=== PATIENT | female | born 2000 | race Caucasian/White ===

== ENCOUNTER → 2019-06-27 13:28 | Outpatient (CLI) | payer OTHER, SELFPAY ==
[2019-06-27 16:29] LABS: Chlamydia Trachomatis by PCR POSITIVE (Negative); Neisserai gonorrhoeae by PCR Negative (Negative); Probe Check PASS; Sample Adequacy Control PASS; Specimen Processing Control PASS
== END ==
PROVIDERS: Referring Provider Obstetrics & Gynecology; Visit Provider Obstetrics & Gynecology
DX: Z11.3 Encounter for screening for infections with a predominantly sexual mode of transmission (principal)
CPT/HCPCS: 87491; 87591

== ENCOUNTER → 2019-07-03 11:13 | Outpatient (CLI) | payer OTHER, SELFPAY ==
[2019-07-03 12:03] LABS: Color, Urine Yellow (Yellow); Glucose, Dipstick Normal (Normal); Ketone-Dipstick 5 mg/dl (Negative); Leukocyte Esterase-Dipstick 100 /ul (Negative); Nitrite-Dipstick Negative (Negative); Occult Blood-Urine Negative /ul (Negative); Protein-Dipstick 30 mg/dl (Negative); Specific Gravity, Urine 1.015 (1.002-1.030); Urine Bilirubin Dipstick Negative (Negative); Urine Clarity Cloudy (Clear); Urine Urobilinogen 1 mg/dl (Normal)
[2019-07-03 12:05] LABS: Absolute Lymphocyte Count 1.84 X10^3/uL (0.83-4.51); Absolute Neutrophil Count 3.8 X10^3/uL (2.0-7.7); Basophil# 0.02 X10^3/uL; Basophil% 0.3 % (0-1); Eosinophil# 0.09 X10^3/uL; Eosinophils% 1.5 % (0-5); Hemoglobin 13.8 g/dL (12.0-15.0); Lymphocyte # 1.84 X10^3/ul (4.0); Mean Corp Hgb Conc 35.4 g/dL (32-36); Mean Corpuscular Hgb 31.4 pg (27.0-32.0); Mean Corpuscular Volume 88.8 fL (81-99); Mean Platelet Vol. 9.5 fl (6.2-12.0); Monocyte% 6.5 % (0-10); NRBC Flagged by Analyzer 0 % (0-5); Neutrophil # 3.77 X10^3/uL (2.7-7.7); Neutrophil % 61.5 % (47-70); Platelet Count 264 K/mm3 (150-450); RBC Distribution Width CV 12.8 % (11.6-14.6); RBC Distribution Width SD 40.7 fl (35.1-43.9); Red Blood Count 4.39 M/mm3 (4.2-5.4); White Blood Count 6.1 K/mm3 (4.4-11.0)
[2019-07-03 12:27] LABS: Thyroid Stim Hormone (TSH) 3.51 uIU/mL (0.358-3.74)
[2019-07-03 12:28] LABS: Amphetamine Urine VISTA NEGATIVE (<1000 ng/mL); Barbiturate Urine VISTA NEGATIVE (< 200 ng/mL); Benzodiazepine Urine VISTA NEGATIVE (< 200 ng/mL); Cocaine Urine VISTA NEGATIVE (< 300 ng/mL); Ecstacy Urine VISTA NEGATIVE (< 500 ng/mL); Methadone Urine VISTA NEGATIVE (< 300 ng/mL); PCP Urine VISTA NEGATIVE (< 25 ng/mL); THC Urine VISTA NEGATIVE (< 50 ng/mL); Vista UDS pH Range 8
[2019-07-03 13:01] LABS: HIV - WCH Non-Reactive (Nonreactive); Hepatitis B Surface Antigen Non-Reactive (Nonreactive); Hepatitis C Antibody Non-Reactive (Nonreactive); Rubella IgG 128.8 IU/mL
[2019-07-05 02:31] LABS: Prenatal RPR NONREACTIVE (NONREACTIVE)
== END ==
PROVIDERS: Visit Provider Obstetrics & Gynecology
DX: Z34.81 Encounter for supervision of other normal pregnancy, first trimester (principal)
CPT/HCPCS: 36415; 80307; 81002; 84443; 85025; 86703; 86762; 86803; 87340

== ENCOUNTER 2019-09-25 15:19 | Outpatient (CLI) | payer OTHER, MEDICAID, SELFPAY ==
[2019-09-25 15:45] VITALS: BMI 23.0
[2019-09-25 16:23] VITALS: TEMP 37.1; O2SAT 98
[2019-09-25 16:24] VITALS: BP 109/62; PULSE 76
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
== END 2019-09-25 17:45 | disposition home or self-care (01) ==
LOC: WPOUT 15:26 → WP 15:26
PROVIDERS: Referring Provider Obstetrics & Gynecology; Visit Provider Obstetrics & Gynecology
DX: O26.892 Other specified pregnancy related conditions, second trimester (principal); V89.2XXA Person injured in unspecified motor-vehicle accident, traffic, initial encounter; Z3A.24 24 weeks gestation of pregnancy
CPT/HCPCS: 59025; 59050; 99218; G0378

== ENCOUNTER → 2019-10-25 15:30 | Outpatient (CLI) | payer OTHER, MEDICAID, SELFPAY ==
[2019-09-25 15:45] VITALS: BMI 23.0
[2019-10-25 15:54] LABS: Hematocrit 33.2 % (37-47); Hemoglobin 11.7 g/dL (12.0-15.0); Mean Corp Hgb Conc 35.2 g/dL (32-36); Mean Corpuscular Hgb 32.8 pg (27.0-32.0); Mean Platelet Vol. 9.5 fl (6.2-12.0); Platelet Count 264 K/mm3 (150-450); RBC Distribution Width CV 12.1 % (11.6-14.6); RBC Distribution Width SD 40.9 fl (35.1-43.9); Red Blood Count 3.57 M/mm3 (4.2-5.4); White Blood Count 7.9 K/mm3 (4.4-11.0)
[2019-10-25 16:16] LABS: Glucose Challenge Gest 1H 50g 82 mg/dL (70-140)
== END ==
PROVIDERS: Visit Provider Obstetrics & Gynecology
DX: Z34.83 Encounter for supervision of other normal pregnancy, third trimester (principal)
CPT/HCPCS: 36415; 82950; 85027; 86850

== ENCOUNTER → 2019-11-20 14:48 | Outpatient (CLI) | payer OTHER, MEDICAID, SELFPAY ==
[2019-11-22 20:07] LABS: Chlamydia By Nucleic Acid AMP Negative (Negative)
[2019-11-22 20:37] LABS: Gonococcus By Nucleic Acid AMP Negative (Negative)
== END ==
PROVIDERS: Visit Provider Obstetrics & Gynecology
DX: Z34.83 Encounter for supervision of other normal pregnancy, third trimester (principal)
CPT/HCPCS: 87491; 87591

== ENCOUNTER → 2019-12-18 16:21 | Outpatient (CLI) | payer OTHER, MEDICAID, SELFPAY ==
[2019-12-21 03:06] LABS: Chlamydia By Nucleic Acid AMP Negative (Negative)
[2019-12-21 06:32] LABS: Gonococcus By Nucleic Acid AMP Negative (Negative)
== END ==
PROVIDERS: Visit Provider Obstetrics & Gynecology
DX: Z34.83 Encounter for supervision of other normal pregnancy, third trimester (principal); Z36.85 Encounter for antenatal screening for Streptococcus B
CPT/HCPCS: 87077; 87081; 87186; 87491; 87591

== ENCOUNTER 2019-12-23 22:25 | Inpatient (IN) | payer OTHER, MEDICAID, SELFPAY ==
[2019-12-23 21:50] VITALS: BMI 27.7
[2019-12-23 22:05] VITALS: BP 142/80; PULSE 66
[2019-12-23 22:29] VITALS: BP 152/83; PULSE 70
[2019-12-23 22:44] LABS: ROM Internal Control Test YES-OK TO RESULT pt. (Internal QC); ROM Patient Test POSITIVE (Negative)
[2019-12-23 22:45] VITALS: BP 159/93; PULSE 74
[2019-12-23] MEDS: Lactated Ringers 500 ML 999 ML IV (23:39)
[2019-12-23 23:53] VITALS: BP 186/93; PULSE 70; TEMP 37.4; O2SAT 99
[2019-12-23] MEDS: Ondansetron 4 MG/2 ML Vial IV (23:56)
[2019-12-24] VITALS (22 sets, daily range): BP systolic 131–170; BP diastolic 73–109; PULSE 58–114; RESP 16; TEMP 36.4–37.5; O2SAT 94–100
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
[2019-12-24] MEDS: Lactated Ringers 1,000 ML 200 ML IV (00:21)
[2019-12-24 00:25] LABS: Hematocrit 37.6 % (37-47); Hemoglobin 13.1 g/dL (12.0-15.0); Mean Corp Hgb Conc 34.8 g/dL (32-36); Mean Corpuscular Hgb 32.1 pg (27.0-32.0); Mean Corpuscular Volume 92.2 fL (81-99); Mean Platelet Vol. 10.6 fl (6.2-12.0); Platelet Count 251 K/mm3 (150-450); RBC Distribution Width CV 12.4 % (11.6-14.6); RBC Distribution Width SD 41.1 fl (35.1-43.9); Red Blood Count 4.08 M/mm3 (4.2-5.4); White Blood Count 9.4 K/mm3 (4.4-11.0)
[2019-12-24 00:40] LABS: AST(SGOT) 17 U/L (15-37); Alanine Aminotransfer ALT/SGPT 22 U/L (13-56); Creatinine, Serum 0.66 mg/dL (0.55-1.02); EST Glomerular Filtration Rate 121 mL/min (>60); Est Glom Filt Rate - Afr Amer 146 mL/min (>60); Estimated Creatinine Clearance 126.22 ml/min; Uric Acid 5.3 mg/dL (2.6-6.0)
[2019-12-24 00:40] LABS: Protein, Urine (Random) 39.2 mg/dL (<11.9); Protein:Creat Ratio 1016 mg/g CRE (0-200)
[2019-12-24] MEDS: Oxytocin 30 units/NS 500 ml 30 UNITS/500 ML IV.SOLN 334 UNITS IV (01:05)
[2019-12-24 01:06] LABS: ALB/GLOB Ratio 0.6 RATIO (0.9-2.4); AST(SGOT) 17 U/L (15-37); Alanine Aminotransfer ALT/SGPT 19 U/L (13-56); Albumin, Serum 2.7 g/dL (3.2-5.0); Alkaline Phosphatase 170 U/L (45-117); Anion Gap 6 (5-15); BUN 6 mg/dL (7-18); BUN/Creat Ratio 9.4 RATIO (10-20); Calcium,Total 8.9 mg/dL (8.5-10.1); Chloride 107 mmol/L (98-107); Creatinine, Serum 0.64 mg/dL (0.55-1.02); EST Glomerular Filtration Rate 125 mL/min (>60); Est Glom Filt Rate - Afr Amer 152 mL/min (>60); Estimated Creatinine Clearance 130.17 ml/min; Globulin 4.4 g/dL (2.2-4.2); Glucose 84 mg/dL (74-106); Protein, Total 7.1 g/dL (6.4-8.2); Sodium Level 138 mmol/L (136-145)
--- NOTE | 2019-12-24 01:28 | OP.PCM_ITS ---
Problem List (1) 37 weeks gestation of Status: Acute (2) (spontaneous vaginal delivery) Status: Acute Vaginal Delivery Maternal Presentation: Active Labor, Spontaneous Rupture of Membranes Amniotic Membrane Rupture Type: Spontaneous at home Rupture of Membrane time: 2100h Amniotic Fluid Description: Clear Final AMARI: 01/14/20 Final AMARI Source: US <20 weeks Gestational age: 37 Weeks and 0 Days Date of Procedure: 12/24/19 Pre-Operative Diagnosis: 37 wga, SROM at 36.6, GBS positive, gestational hypertension Post-Operative Diagnosis: 37 wga, SROM at 36.6, GBS positive, gestational hypertension Surgery/ Procedure Performed: Spontaneous Vaginal Delivery Type of Anesthesia: None Description of Procedure: I was advised patient sat for her epidural, however c/o of pressure and repeat SVE FD/+2. On my arrival FHR Cat I with elevated maternal blood pressures. Patient pushed with excellent effort to deliver infant head in TIO with a compound presentation of the infant posterior hand. Infant mouth and nares were bulb suctioned at the perineum. The compound presentation prevented delivery of the anterior shoulders. The compound and posterior shoulder was delivered with ease then the anterior should delivered revealing a male . The was placed on the maternal abdomen and further attended by nursery personnel. The co rd was doubly clamped and cut. Cord gases and cord blood specimen were obtained. Initial maternal BP following delivery was significantly lower than prior. Remaining preeclamptic labs were wnl, IV antihypertensives held. Suspect mild gestational HTN vs. preeclampsia without severe features. The placenta delivered spontaneously and appeared intact on inspection. Perineum intact. Excellent hemostasis. Sponge and needle counts were correct x 2. Presentation: Vertex, TIO Placental Delivery Description: Spontaneous Placenta Disposition: Sent to Pathology Cord Vessel Description: 3 Vessels Nuchal Cord Compression: Without compression Cord Gases drawn per routine: ABG, VBG Cord Entanglement: None Estimated Blood Loss: 150 ml Infant A gender: Male (1 minute): 5 (5 minute): 8 - 9 at 10 minutes Episiotomy Description: None Laceration: None Medications given after delivery: IV Pitocin Complications: None
--- NOTE | 2019-12-24 01:56 | PLAC_PTH ---
PATIENT: JEANNE RONDON LOC: WP U#:[id number] AGE/SX: 19/F ROOM: WP005 RE12/23/[address]: Dr. Ronna Carey MD : 2000 BED: 1 DIS: 12/26/2019 SPEC #: [id number] RECD: 12/24/19 02:31 STATUS: TARIQ REJosr #: [id number] ANNELISE: 12/24/19 01:[address]: Ronna Ravi DEPT: SURGICAL PATHOLOGY RECD BY: Ryan Roblero ENTERED: 12/24/19 08:37 SP TYPE: PLACENTA OTHR DR: Lucia Primary Care Phys Tissues: Placenta, NOS Procedures: Surgery Specimen Level V HEADER OPERATION: Vaginal delivery PRE-OP DIAGNOSIS: Rupture of membranes TISSUE SUBMITTED: Placenta MICROSCOPIC DIAGNOSIS Mays placenta (467 gm): Umbilical cord - trivascular with no inflammation. Placental membranes - no pathologic change. Placental disc - remote infarcts and mildly increased intraparenchymal microcalcifications. AM:dwight 12/25/19 MICROSCOPIC DESCRIPTION Slides are reviewed. GROSS DESCRIPTION SPECIMEN: PLACENTA / CLINICAL INFORMATION: A. Weight: 2.96 kg B. Gestational Age: 37 weeks C. Sex: Male PLACENTAL WEIGHT (POST FIXATION): 467 gm PLACENTAL DIMENSIONS: 17 x 16 x 2.5 cm PLACENTAL SHAPE: Usual ovoid PLACENTAL WEIGHT FOR GESTATIONAL AGE: Within 10-99th percentile MEMBRANES - Present A. Insertion: Marginal B. Site of rupture from edge: 3 cm from edge of placental disc C. Color of membrane: [place] D. Abnormalities: None UMBILICAL CORD - Present A. Color: [place] B. Insertion: Near central C. Length: 21 cm D. Diameter: 1.2 cm E. Number of vessels: Three F. Abnormalities: None PLACENTAL DISC - Present A. Color of surface: [place] B. surface abnormalities: None C. Maternal cotyledons: Intact with minimal tears D. Attached retro placental clot: No clot E. Cut surface: Dark red and spongy F. Lesions: [place]-white lesion at edge of placental disc measuring 3 x 1 x 0.5 cm. G. Separate clot: Absent SECTIONS SUBMITTED: 1. Umbilical cord ( end notched) 2. Umbilical cord, placental end 3. Membrane roll, lesion 4. Placental disc, and maternal surfaces 5. Placental disc, and maternal surfaces 6. Placental disc, and maternal surfaces AM:dwight 12/24/19 TC:5 CPT: 37960
[2019-12-24 02:33] LABS: Pathology Specimen OB SEE PATHOLOGY REPORT
[2019-12-24] MEDS: Acetaminophen 325 MG Tablet PO (03:23)
[2019-12-24] MEDS: Sertraline 50 MG Tablet PO (11:02)
[2019-12-24] MEDS: Prenatal Vits Tablet 1 TABLET PO (11:02)
--- NOTE | 2019-12-24 14:28 | NURSING ---
Yoly Flores-social studies department chair, notified of PHQ-9 score of 12 with #9 indicating crisis needs called
--- NOTE | 2019-12-24 17:28 | CASEMGMT ---
Social Work Labor and Delivery Unit Notified by Rosy Navarro RN about patient's PHQ9 results with a score of 12. This falls into the moderate range of depression. Patient also indicated several days over the last 2 weeks has felt would be better off . Met with patient for social work assessment and suicide risk assessment. Both completed with patient and full documentation to follow. Based on assessment patient does not need 1:1 intervention with staff relating to question #9 on the PHQ9. Patient is future oriented, reports has found antidepressant to be helpful, and is open to consider counseling in the period. No need to call crisis for a crisis assessment. Plan: Documentation of full assessment to follow. Will plan to meet with MOB gain on 12.25.2019 to see how MOB is doing, as well as provide resources for home going. -GEORGES Villatoro, RESTORATIVE REHAB AIDE
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
[2019-12-25 00:55] VITALS: BP 123/63; PULSE 61; RESP 16; TEMP 36.8
[2019-12-25] MEDS: Ibuprofen 600 MG Tablet PO ×2 (03:09→19:31)
[2019-12-25 03:12] VITALS: BP 131/71; PULSE 63; RESP 14; TEMP 36.5
--- NOTE | 2019-12-25 03:27 | PCM.PN.OB ---
Patient Problems: Active and Suspected Problems (Last Updated 12/23/19 @ 23:[address] Ronna Carey MD) 37 weeks gestation of (Acute) (spontaneous vaginal delivery) (Acute) Subjective: PPD#1 Denies MARTIN, vision changes, chest pain, dyspnea, RUQ pain. Lochia minimal. - Physical Exam Vitals/I&O's: Vital Signs Temp Pulse Resp BP Pulse Ox 97.7 F L 63 14 131/71 H 97 12/25/19 03:12 12/25/19 03:12 12/25/19 03:12 12/25/19 03:12 12/24/19 08:15 Oxygen Delivery Method Room Air Weight: 77.927 kg Body Mass Index (BMI) 27.7 Intake and Output for Last 24 Hours 12/23/19 12/24/19 12/25/19 23:59 23:59 23:59 Intake Total 1248.33 / 1248.33 Output Total 775 / 775 Balance 473.33 / 473.33 General: Alert, Oriented x3, No apparent distress HEENT: Atraumatic, Normocephalic Lungs: Normal air movement Cardiovascular: Regular rate Abdomen: Soft, Non Tender - Uterus 2 cmbelow umbilicus Extremities: No edema Neurological: Cranial nerves II-XII grossly intact, Deep Tendon Reflexes 2+/4 and Symmetrical Psych/Mental Status: Normal Affect, Appropriate Microbiology Past 72 Hours 12/24/19 01:40 Mucosa - Nose - Final Current Medications Acetaminophen (Acetaminophen 325 Mg Tablet) 325 - 650 mg PO Q4H PRN PRN PRN Reason: Pain Score 1-3 Last Admin: 12/24/19 03:23 Dose: 650 mg Documented by: Bisacodyl (Bisacodyl 10 Mg Suppository) 10 mg RECTAL UD PRN PRN Reason: If no BM Dibucaine (Dibucaine 30 Gm Tube) 1 applic TOPICAL TID PRN PRN; Protocol PRN Reason: Discomfort Hydralazine HCl (Hydralazine 20 Mg/Ml Vial) 10 mg IV X1 PRN PRN Reason: Elevated BP Hydrocortisone (Hydrocortisone 2.5% Crm) 1 applic TOPICAL TID PRN PRN; Protocol PRN Reason: Discomfort Ibuprofen (Ibuprofen 600 Mg Tablet) 600 mg PO Q6H PRN PRN PRN Reason: Pain Score 1-3 Last Admin: 12/25/19 03:09 Dose: 600 mg Documented by: Labetalol HCl (Labetalol (Prefilled) 20 Mg/4 Ml) 20 mg IV X1 PRN PRN Reason: Elevated BP Labetalol HCl (Labetalol (Prefilled) 20 Mg/4 Ml) 40 mg IV X1 PRN PRN Reason: Elevated BP Labetalol HCl (Labetalol (Prefilled) 20 Mg/4 Ml) 80 mg IV X1 PRN PRN Reason: Elevated BP Methylergonovine Maleate (Methylergonovine 0.2 Mg/Ml Ampul) 0.2 mg IM X1 PRN PRN Reason: Excess bleeding/uterine atony Ondansetron HCl (Ondansetron 4 Mg/2 Ml Vial) 4 mg IV Q4H PRN PRN PRN Reason: NAUSEA Last Admin: 12/23/19 23:56 Dose: 4 mg Documented by: Multivit/Folic Acid/Iron ( Vits Tablet) 1 tablet PO DAILY [facility] Last Admin: 12/24/19 11:02 Dose: 1 tablet Documented by: Senna/Docusate Sodium (Senna/Docusate Sodium 1 Tablet) 1 - 2 tablet PO DAILY PRN PRN PRN Reason: Constipation Sertraline HCl (Sertraline 50 Mg Tablet) 50 mg PO DAILY [facility] Last Admin: 12/24/19 11:02 Dose: 50 mg Documented by: Simethicone (Simethicone 80 Mg Tablet) 80 mg PO PCHS PRN PRN Reason: Indigestion/Stomach pain Sodium Chloride (0.9% Saline Lock 10 Ml Syringe) 5 - 15 ml IV UD PRN PRN Reason: SALINE FLUSH Medical Necessity - Tobacco Use Smoking Status: Never smoker Assessment/Plan All Active Problems (Last Updated 12/23/19 @ 23:[address] Ronna Carey MD) 37 weeks gestation of (Acute) (spontaneous vaginal delivery) (Acute) SROM (spontaneous rupture of membranes) (Acute) 19 yo PPD#1 s/p , complicated by pre-eclampsia. Labs pending this morning. Blood pressures remain in 130-140s systolic, asymptomatic. PHQ9 is 12 -patient declines medication at this time, would like to wait a couple weeks and see how she feels. Will call office if needed. Home pod3. Will need BP check in 1 week.
[2019-12-25 06:15] LABS: Hematocrit 33.9 % (37-47); Hemoglobin 11.8 g/dL (12.0-15.0); Mean Corp Hgb Conc 34.8 g/dL (32-36); Mean Corpuscular Volume 91.9 fL (81-99); Mean Platelet Vol. 9.9 fl (6.2-12.0); Platelet Count 198 K/mm3 (150-450); RBC Distribution Width CV 12.4 % (11.6-14.6); RBC Distribution Width SD 41.1 fl (35.1-43.9); Red Blood Count 3.69 M/mm3 (4.2-5.4); White Blood Count 8.4 K/mm3 (4.4-11.0)
[2019-12-25 06:42] LABS: ALB/GLOB Ratio 0.6 RATIO (0.9-2.4); AST(SGOT) 30 U/L (15-37); Alanine Aminotransfer ALT/SGPT 23 U/L (13-56); Albumin, Serum 2.1 g/dL (3.2-5.0); Alkaline Phosphatase 117 U/L (45-117); Anion Gap 3 (5-15); BUN 10 mg/dL (7-18); BUN/Creat Ratio 15.1 RATIO (10-20); Calcium,Total 8.7 mg/dL (8.5-10.1); Chloride 106 mmol/L (98-107); Creatinine, Serum 0.66 mg/dL (0.55-1.02); EST Glomerular Filtration Rate 120 mL/min (>60); Est Glom Filt Rate - Afr Amer 145 mL/min (>60); Estimated Creatinine Clearance 126.22 ml/min; Globulin 3.6 g/dL (2.2-4.2); Glucose 65 mg/dL (74-106); Protein, Total 5.7 g/dL (6.4-8.2); Sodium Level 138 mmol/L (136-145)
[2019-12-25 08:30] VITALS: BP 132/80; PULSE 86; RESP 16; TEMP 36.2
[2019-12-25] MEDS: Prenatal Vits Tablet 1 TABLET PO (09:47)
[2019-12-25] MEDS: Sertraline 50 MG Tablet PO (09:47)
[2019-12-25 14:00] VITALS: BP 123/66; PULSE 69; RESP 16; TEMP 36.4
[2019-12-25 19:38] VITALS: BP 131/87; PULSE 67; RESP 16; TEMP 36.7; O2SAT 97
[2019-12-26 02:04] VITALS: BP 142/83; PULSE 62; RESP 18; TEMP 36.4; O2SAT 97
[2019-12-26] MEDS: Ibuprofen 600 MG Tablet PO ×2 (02:10→10:03)
--- NOTE | 2019-12-26 07:53 | DCINST_ITS ---
Discharge Diet: No Restrictions Discharge Activity: Return to Normal Activity May resume sexual activity in: 6 weeks Lifting Restrictions: 20 lb Instructions: Understanding Preeclampsia Additional Instructions: If you experience any of the following, contact your healthcare provider. * Bleeding that soaks a pad every hour for 2 hours * Fever 100.4 or higher * Unrelieved incision or abdominal pain * Swelling, redness, discharge or bleeding from your incision or episiotomy site * Your incision begins to separate * Problems urinating (including inability to urinate or burning while urinating). * Visual changes * Severe headache * Flu-like symptoms * Pain or redness in one of both of your breasts * Pain, warmth, tenderness or swelling in your legs, especially the calf area * Frequent nausea and vomiting * Symptoms of depression or anxiety If you experience any of the following, call 911 or go to the nearest Emergency Room. * Chest pain * Problems breathing * Seizure activity * Partial or complete paralysis of a body part, slurred speech, weakness or drooping of the face, or a sudden inability to walk or hold your balance Allergies/Adverse Reactions: Allergies No Known Allergies Allergy (Verified 12/23/19 21:52) Medications to take at Discharge Sertraline HCl [Zoloft] 50 mg PO DAILY 09/25/19 Vits [Prenatabs FA ] 1 tab PO DAILY 12/23/19 Ibuprofen [Motrin] 600 mg PO Q8H PRN PRN #30 tab 12/26/19 The following prescriptions were given: Ibuprofen [Motrin] 600 mg PO Q8H PRN PRN #30 tab PRN Reason: Pain 1-10 Or Fever Transmission Status: Pending to [address] Please Follow Up With: Jake Brown MD - blood pressure check When: 7-10 days Please Follow Up With: Jake Brown MD - visit When: 6 weeks Primary Care Physician: Care Physician,No Primary [Primary Care Provider] - Test Results: Test results from this visit will be discussed in further detail at your follow- up appointment, if applicable.
--- NOTE | 2019-12-26 07:53 | PCM.DCVAG ---
Discharge Diet: No Restrictions Discharge Activity: Return to Normal Activity May resume sexual activity in: 6 weeks Lifting Restrictions: 20 lb Instructions: Understanding Preeclampsia Additional Instructions: If you experience any of the following, contact your healthcare provider. Bleeding that soaks a pad every hour for 2 hours Fever 100.4 or higher Unrelieved incision or abdominal pain Swelling, redness, discharge or bleeding from your incision or episiotomy site Your incision begins to separate Problems urinating (including inability to urinate or burning while urinating). Visual changes Severe headache Flu-like symptoms Pain or redness in one of both of your breasts Pain, warmth, tenderness or swelling in your legs, especially the calf area Frequent nausea and vomiting Symptoms of depression or anxiety If you experience any of the following, call 911 or go to the nearest Emergency Room. Chest pain Problems breathing Seizure activity Partial or complete paralysis of a body part, slurred speech, weakness or drooping of the face, or a sudden inability to walk or hold your balance Allergies/Adverse Reactions: Allergies No Known Allergies Allergy (Verified 12/23/19 21:52) Medications to take at Discharge Sertraline HCl [Zoloft] 50 mg PO DAILY 09/25/19 Vits [Prenatabs FA ] 1 tab PO DAILY 12/23/19 Ibuprofen [Motrin] 600 mg PO Q8H PRN PRN #30 tab 12/26/19 The following prescriptions were given: Ibuprofen [Motrin] 600 mg PO Q8H PRN PRN #30 tab PRN Reason: Pain 1-10 Or Fever Transmission Status: Pending to [place] [id number] [address] [facility] Please Follow Up With: Jake Brown MD - blood pressure check When: 7-10 days Please Follow Up With: Jake Brown MD - visit When: 6 weeks Primary Care Physician: Care Physician,No Primary [Primary Care Provider] - Test Results: Test results from this visit will be discussed in further detail at your follow-up appointment, if applicable.
[2019-12-26 07:58] VITALS: BP 125/77; PULSE 73; RESP 16; TEMP 36.3
--- NOTE | 2019-12-26 08:10 | PN.OBGYN_ITS ---
Patient Problems: Active and Suspected Problems (Last Updated 12/23/19 @ 23:[address] Ronna Carey MD) 37 weeks gestation of (Acute) (spontaneous vaginal delivery) (Acute) Subjective: No complaints this morning. Denies heavy lochia. She continues and feels this is going well. Denies headache, vision changes or abdominal pain. Objective: AVSS - Physical Exam Vitals/I&O's: Vital Signs Temp Pulse Resp BP Pulse Ox 97.4 F L 73 16 125/77 H 97 12/26/19 07:58 12/26/19 07:58 12/26/19 07:58 12/26/19 07:58 12/26/19 02:04 Oxygen Delivery Method Room Air Weight: 77.927 kg Body Mass Index (BMI) 27.7 Intake and Output for Last 24 Hours 12/24/19 12/25/19 12/26/19 23:59 23:59 23:59 Intake Total 1248.33 / 1248.33 Output Total 775 / 775 Balance 473.33 / 473.33 General: Alert, Oriented x3, Cooperative, No apparent distress HEENT: Atraumatic, Normocephalic Lungs: Clear to auscultation, Normal air movement Cardiovascular: Regular rate, Regular Rhythm, Normal S1, Normal S2 Abdomen: Soft, Non Tender, Non-Distended, - - Fundus firm and nontender Extremities: No edema, No Calf Tenderness Neurological: Neuro grossly intact Psych/Mental Status: Normal Affect, Appropriate, Alert and oriented to time, place, person, mood and affect Microbiology Past 72 Hours 12/24/19 01:40 Mucosa - Nose - Final Current Medications Acetaminophen (Acetaminophen 325 Mg Tablet) 325 - 650 mg PO Q4H PRN PRN PRN Reason: Pain Score 1-3 Last Admin: 12/24/19 03:23 Dose: 650 mg Documented by: Bisacodyl (Bisacodyl 10 Mg Suppository) 10 mg RECTAL UD PRN PRN Reason: If no BM Dibucaine (Dibucaine 30 Gm Tube) 1 applic TOPICAL TID PRN PRN; Protocol PRN Reason: Discomfort Hydralazine HCl (Hydralazine 20 Mg/Ml Vial) 10 mg IV X1 PRN PRN Reason: Elevated BP Hydrocortisone (Hydrocortisone 2.5% Crm) 1 applic TOPICAL TID PRN PRN; Protocol PRN Reason: Discomfort Ibuprofen (Ibuprofen 600 Mg Tablet) 600 mg PO Q6H PRN PRN PRN Reason: Pain Score 1-3 Last Admin: 12/26/19 02:10 Dose: 600 mg Documented by: Labetalol HCl (Labetalol (Prefilled) 20 Mg/4 Ml) 20 mg IV X1 PRN PRN Reason: Elevated BP Labetalol HCl (Labetalol (Prefilled) 20 Mg/4 Ml) 40 mg IV X1 PRN PRN Reason: Elevated BP Labetalol HCl (Labetalol (Prefilled) 20 Mg/4 Ml) 80 mg IV X1 PRN PRN Reason: Elevated BP Methylergonovine Maleate (Methylergonovine 0.2 Mg/Ml Ampul) 0.2 mg IM X1 PRN PRN Reason: Excess bleeding/uterine atony Ondansetron HCl (Ondansetron 4 Mg/2 Ml Vial) 4 mg IV Q4H PRN PRN PRN Reason: NAUSEA Last Admin: 12/23/19 23:56 Dose: 4 mg Documented by: Multivit/Folic Acid/Iron ( Vits Tablet) 1 tablet PO DAILY [facility] Last Admin: 12/25/19 09:47 Dose: 1 tablet Documented by: Senna/Docusate Sodium (Senna/Docusate Sodium 1 Tablet) 1 - 2 tablet PO DAILY PRN PRN PRN Reason: Constipation Sertraline HCl (Sertraline 50 Mg Tablet) 50 mg PO DAILY [facility] Last Admin: 12/25/19 09:47 Dose: 50 mg Documented by: Simethicone (Simethicone 80 Mg Tablet) 80 mg PO HS PRN PRN Reason: Indigestion/Stomach pain Sodium Chloride (0.9% Saline Lock 10 Ml Syringe) 5 - 15 ml IV UD PRN PRN Reason: SALINE FLUSH Medical Necessity - Tobacco Use Smoking Status: Never smoker Assessment/Plan All Active Problems (Last Updated 12/23/19 @ 23:[address] Ronna Carey MD) Gestational hypertension (Acute) 37 weeks gestation of (Acute) (spontaneous vaginal delivery) (Acute) SROM (spontaneous rupture of membranes) (Acute) This is a 19 year-old, G [1], P 1 PPD#2 s/p , hx gHTN vs. mild preeclampsia -No si/sx worsening BPs. -A neg, infant A positive - pt s/p Rhogam -Routine care -hx depression - will continue Zoloft at home -d/c home today, f/u in office in 7-10 days
[2019-12-26] MEDS: Prenatal Vits Tablet 1 TABLET PO (10:03)
[2019-12-26] MEDS: Sertraline 50 MG Tablet PO (10:03)
== END 2019-12-26 11:30 | disposition home or self-care (01) | DRG 807 ==
LOC: WPOUT 22:56 → WP 22:56
PROVIDERS: Student in an Organized Health Care Education/Training Program; Admitting Provider Obstetrics & Gynecology; Referring Provider Obstetrics & Gynecology; Visit Provider Obstetrics & Gynecology
DX: O13.4 Gestational [pregnancy-induced] hypertension without significant proteinuria, complicating childbirth (principal); Z37.0 Single live birth; Z3A.37 37 weeks gestation of pregnancy; O99.824 Streptococcus B carrier state complicating childbirth; Z23 Encounter for immunization; O99.344 Other mental disorders complicating childbirth; F32.9 Major depressive disorder, single episode, unspecified; O32.6XX0 Maternal care for compound presentation, not applicable or unspecified
CPT/HCPCS: 59025; 59050; 76815; 80053; 82565; 82570; 84112; 84156; 84450; 84460; 84550; 85027; 85461; 86850; 86900; 86901; 87426; 88307; 90384; 99218; J7120; 90686; G0378; J2405; J2790

== ENCOUNTER → 2020-01-01 14:42 | Outpatient (CLI) | payer OTHER, MEDICAID, SELFPAY ==
[2019-12-23 21:50] VITALS: BMI 27.7
[2020-01-01 16:58] LABS: Hematocrit 41.2 % (37-47); Hemoglobin 14.2 g/dL (12.0-15.0); Mean Corp Hgb Conc 34.5 g/dL (32-36); Mean Corpuscular Hgb 32.1 pg (27.0-32.0); Mean Platelet Vol. 9.4 fl (6.2-12.0); Platelet Count 354 K/mm3 (150-450); RBC Distribution Width CV 11.9 % (11.6-14.6); Red Blood Count 4.43 M/mm3 (4.2-5.4); White Blood Count 7.7 K/mm3 (4.4-11.0)
[2020-01-01 17:29] LABS: ALB/GLOB Ratio 0.7 RATIO (0.9-2.4); AST(SGOT) 30 U/L (15-37); Alanine Aminotransfer ALT/SGPT 73 U/L (13-56); Albumin, Serum 3.2 g/dL (3.2-5.0); Alkaline Phosphatase 109 U/L (45-117); Anion Gap 5 (5-15); BUN 10 mg/dL (7-18); BUN/Creat Ratio 14.4 RATIO (10-20); Calcium,Total 9.2 mg/dL (8.5-10.1); Chloride 106 mmol/L (98-107); Creatinine, Serum 0.69 mg/dL (0.55-1.02); EST Glomerular Filtration Rate 113 mL/min (>60); Est Glom Filt Rate - Afr Amer 137 mL/min (>60); Follicle Stimulating Hormone < 0.2 mIU/mL; Globulin 4.3 g/dL (2.2-4.2); Glucose 90 mg/dL (74-106); Luteinizing Hormone < 0.2 mIU/mL; Potassium 3.9 mmol/L (3.5-5.1); Protein, Total 7.5 g/dL (6.4-8.2); Sodium Level 138 mmol/L (136-145); T4 Free Direct 1.23 ng/dL (0.76-1.46); Thyroid Stim Hormone (TSH) 1.16 uIU/mL (0.358-3.74)
== END ==
PROVIDERS: Visit Provider Obstetrics & Gynecology
DX: R53.1 Weakness (principal)
CPT/HCPCS: 36415; 80053; 83001; 83002; 84439; 84443; 85027

== ENCOUNTER → 2023-11-28 | Outpatient (CLI) | payer OTHER, SELFPAY ==
[2023-11-28 15:49] LABS: Absolute Lymphocyte Count 1.99 X10^3/uL (0.83-4.51); Absolute Neutrophil Count 2.9 X10^3/uL (2.0-7.7); Basophil# 0.03 X10^3/uL; Basophil% 0.6 % (0-1); Eosinophil# 0.04 X10^3/uL; Eosinophils% 0.7 % (0-5); Hematocrit 32.3 % (37-47); Hemoglobin 10.2 g/dL (12.0-15.0); Lymphocyte # 1.99 X10^3/ul (0.83-4.51); Lymphocyte % 36.9 % (19-41); Mean Corp Hgb Conc 31.6 g/dL (32-36); Mean Corpuscular Hgb 24.9 pg (27.0-32.0); Mean Platelet Vol. 9.7 fl (6.2-12.0); Monocyte# 0.41 X10^3/uL; Monocyte% 7.6 % (0-10); NRBC Flagged by Analyzer 0 % (0-5); Neutrophil # 2.91 X10^3/uL (2.7-7.7); Platelet Count 292 K/mm3 (150-450); RBC Distribution Width CV 15.3 % (11.6-14.6); RBC Distribution Width SD 43.8 fl (35.1-43.9); Red Blood Count 4.09 M/mm3 (4.2-5.4); White Blood Count 5.4 K/mm3 (4.4-11.0)
[2023-11-28 16:10] LABS: ALB/GLOB Ratio 0.9 RATIO (0.9-2.4); AST(SGOT) 21 U/L (15-37); Alanine Aminotransfer ALT/SGPT 24 U/L (13-56); Albumin, Serum 3.9 g/dL (3.2-5.0); Alkaline Phosphatase 34 U/L (45-117); Anion Gap 7 (5-15); BUN 8 mg/dL (7-18); BUN/Creat Ratio 14.8 RATIO (10-20); Calcium,Total 9.4 mg/dL (8.5-10.1); Chloride 100 mmol/L (98-107); Creatinine, Serum 0.54 mg/dL (0.55-1.02); EST Glomerular Filtration Rate 146 mL/min (>60); Est Glom Filt Rate - Afr Amer 177 mL/min (>60); Globulin 4.2 g/dL (2.2-4.2); Glucose 88 mg/dL (74-106); Potassium 3.7 mmol/L (3.5-5.1); Protein, Total 8.1 g/dL (6.4-8.2); Sodium Level 132 mmol/L (136-145)
[2023-11-28 16:50] LABS: HIV - WCH Non-Reactive (Nonreactive); Hepatitis B Surface Antigen Non-Reactive (Nonreactive); Hepatitis C Antibody Non-Reactive (Nonreactive); Rubella IgG Reactive (Nonreactive); Syphilis Antibodies Non-reactive
[2023-11-28 17:08] LABS: Protein, Urine (Random) 7.7 mg/dL (<11.9); Protein:Creat Ratio 173 mg/g CRE (0-200)
[2023-12-01 06:10] LABS: Chlamydia By Nucleic Acid AMP Negative (Negative); Gonococcus By Nucleic Acid AMP Negative (Negative)
[2023-12-03 14:32] LABS: HPV Reflexed? NOT INDICATED
== END | disposition home or self-care (01) ==
LOC: WOBLAB 15:14
PROVIDERS: Referring Provider Obstetrics & Gynecology; Visit Provider Obstetrics & Gynecology
DX: O09.90 Supervision of high risk pregnancy, unspecified, unspecified trimester (principal); Z3A.00 Weeks of gestation of pregnancy not specified; Z12.4 Encounter for screening for malignant neoplasm of cervix; Z87.59 Personal history of other complications of pregnancy, childbirth and the puerperium
CPT/HCPCS: 36415; 80053; 82570; 84156; 85025; 86703; 86762; 86780; 86803; 86850; 86900; 86901; 87077; 87086; 87088; 87340; 87491; 87591; 88175; G0145

== ENCOUNTER → 2023-12-26 | Outpatient (CLI) | payer OTHER, SELFPAY ==
[2023-12-28 22:07] LABS: Chlamydia By Nucleic Acid AMP Negative (Negative); Gonococcus By Nucleic Acid AMP Negative (Negative)
== END | disposition home or self-care (01) ==
LOC: LABSPEC 16:00
PROVIDERS: Referring Provider Obstetrics & Gynecology; Visit Provider Obstetrics & Gynecology
DX: Z11.3 Encounter for screening for infections with a predominantly sexual mode of transmission (principal)
CPT/HCPCS: 87491; 87591

== ENCOUNTER → 2024-02-06 | Outpatient (CLI) | payer OTHER, SELFPAY ==
--- NOTE | 2024-02-06 15:31 | US_ITS ---
STUDY: SECOND AND THIRD TRIMESTER OBSTETRICAL ULTRASOUND REASON FOR EXAM: Female, 23 years old anatomy ultrasound LMP: September 17, 2023. TECHNIQUE: Transabdominal and Transvaginal TECHNICAL QUALITY: Adequate. PRIOR ULTRASOUND: None. FINDINGS: There is a single intrauterine fetus. The fetus is in an transverse lie with the head on the maternal left side. There is demonstrated cardiac activity with a heart rate of 145 bpm. There is a normal amniotic fluid volume. The largest amniotic fluid pocket measures 4.3 cm. The amniotic fluid index (RUSH) is within normal limits. The placenta is posterior in location and is not low lying. There are Grade 0 placental changes. The cervix measures 3.9 cm in length. The bilateral adnexal regions are normal. BIOMETRY: BPD: 4.5 cm: 19 weeks, 5 days: 29% HC: 17.2 cm: 19 weeks, 6 days: 21% AC: 16.1 cm: 21 weeks, 1 days: 74% FL: 3.1 cm: 19 weeks, 5 days: 23% CI: 74% FL/BPD: 69% FL/HC: 18% FL/AC: 19% HC/AC: 1.1 age by current US: 20 weeks, 2 days. AMARI by current US: June 24, 2023. Estimated weight: 355 grams, +/- 53 grams, 54 %. Age by LMP: 20 weeks, 1 days. AMARI by LMP: June 25, 2023. ANATOMY: Gender: Male Cranium: Normal lateral ventricles. Normal choroid plexus. Normal cerebellum. Normal cisterna magna. Normal face, nose and lips. Chest: Normal 4-chamber heart. Abdomen/Pelvis: Normal diaphragm. Normal stomach. Normal abdominal wall. Normal cord insertion. Normal 3 vessel cord. Normal kidneys. Normal bladder. Spine: Normal cervical spine. Normal thoracic spine. Normal lumbar spine. Normal sacrum. Extremities: Normal bilateral upper extremities. Normal bilateral lower extremities. IMPRESSION: Single live uterine gestation with a mean gestational age of 20 weeks and 2 days. Electronically Signed: Marcial Powell MD at 11:00 EST , STUDY: FIRST TRIMESTER OBSTETRICAL ULTRASOUND REASON FOR EXAM: Female, 23 years old. Cervical length. LMP: September 17, 2023. TECHNIQUE: Transvaginal TECHNICAL QUALITY: Adequate. PRIOR ULTRASOUND: None. FINDINGS: Cervical length measures 3.9 cm. US/OB Anatomy w/ Transvaginal IMPRESSION: Cervical length measures 3.9 cm. Electronically Signed: Marcial Powell MD at 11:01 EST ,
== END | disposition home or self-care (01) ==
LOC: US 15:28
PROVIDERS: Referring Provider Obstetrics & Gynecology; Visit Provider Obstetrics & Gynecology
DX: O09.90 Supervision of high risk pregnancy, unspecified, unspecified trimester (principal); Z3A.00 Weeks of gestation of pregnancy not specified
CPT/HCPCS: 76805; 76817

== ENCOUNTER → 2024-03-30 | Outpatient (CLI) | payer OTHER, SELFPAY ==
[2024-03-30 16:38] LABS: Glucose Challenge Gest 1H 50g 116 mg/dL (70-140)
[2024-03-30 16:40] LABS: Absolute Lymphocyte Count 1.89 X10^3/uL (0.83-4.51); Absolute Neutrophil Count 5.2 X10^3/uL (2.0-7.7); Basophil# 0.02 X10^3/uL; Basophil% 0.3 % (0-1); Eosinophil# 0.07 X10^3/uL; Eosinophils% 0.9 % (0-5); Hematocrit 32.4 % (37-47); Hemoglobin 10.9 g/dL (12.0-15.0); Lymphocyte # 1.89 X10^3/ul (0.83-4.51); Lymphocyte % 23.9 % (19-41); Mean Corp Hgb Conc 33.6 g/dL (32-36); Mean Corpuscular Hgb 31.7 pg (27.0-32.0); Mean Corpuscular Volume 94.2 fL (81-99); Mean Platelet Vol. 9.6 fl (6.2-12.0); Monocyte# 0.68 X10^3/uL; Monocyte% 8.6 % (0-10); NRBC Flagged by Analyzer 0 % (0-5); Neutrophil # 5.19 X10^3/uL (2.7-7.7); Neutrophil % 65.4 % (47-70); Platelet Count 320 K/mm3 (150-450); RBC Distribution Width CV 13.1 % (11.6-14.6); RBC Distribution Width SD 44.8 fl (35.1-43.9); Red Blood Count 3.44 M/mm3 (4.2-5.4); White Blood Count 7.9 K/mm3 (4.4-11.0)
[2024-03-30 17:27] LABS: HIV - WCH Non-Reactive (Nonreactive); Syphilis Antibodies Non-reactive
== END | disposition home or self-care (01) ==
LOC: BWCLAB 13:03
PROVIDERS: Referring Provider Advanced Practice Midwife; Visit Provider Advanced Practice Midwife
DX: O09.90 Supervision of high risk pregnancy, unspecified, unspecified trimester (principal); Z13.1 Encounter for screening for diabetes mellitus; Z3A.00 Weeks of gestation of pregnancy not specified
CPT/HCPCS: 36415; 82950; 85025; 86703; 86780

== ENCOUNTER 2024-06-08 21:15 | Outpatient (CLI) | payer OTHER, MEDICAID, SELFPAY ==
[2024-06-08 21:21] VITALS: BMI 27.2
[2024-06-08 21:29] VITALS: PULSE 92; RESP 14; TEMP 36.6; O2SAT 97
[2024-06-08 21:30] VITALS: BP 134/76; PULSE 83
[2024-06-08 22:03] LABS: Mucous, Urine 0 SEEN /hpf (<or=2+); Red Blood Cells-Urine 0 SEEN /hpf (0-5)
[2024-06-08 22:21] LABS: Color, Urine Yellow (Yellow); Glucose, Dipstick Normal (Normal); Ketone-Dipstick Negative (Negative); Leukocyte Esterase-Dipstick 100 /ul (Negative); Nitrite-Dipstick Negative (Negative); Occult Blood-Urine 150 /ul (Negative); Protein-Dipstick 15 mg/dl (Negative); Urine Bilirubin Dipstick Negative (Negative); Urine Clarity Clear (Clear); Urine Urobilinogen Normal (Normal)
[2024-06-08 22:33] LABS: White Blood Cells 5-10 SEEN /hpf (0-5)
[2024-06-08 22:34] LABS: Bacteria RARE /hpf (None Seen); Squamous Epithelial Cells - UA 10-25 SEEN /hpf (5-10); Transitional Epithelial - Ur 0-5 SEEN /hpf (0-5)
[2024-06-08] MEDS: FOSFOMYCIN TROMETHAMINE 3 GM PACKET PO (22:57)
[2024-06-08] MEDS: Acetaminophen 500 MG Tablet 1000 MG PO (23:45)
--- NOTE | 2024-06-08 23:51 | OB.TRI.PN ---
Progress Notes Date of Service: 06/08/24 Progress Note: Patient presents for triage evaluation secondary to uterine contractions at 37.6 weeks FHT: 125 Moderate variability reactive no decelerations category I tracing [place]: irregular Contractions Assessment and plan: urine showed possible UTI-ATB ordered, no cervical change, Reactive NST, reassuring maternal and status patient discharged to home to follow-up in office. See problem list details for additional plan information. Laboratory Studies: Laboratory Tests 06/08/24 Range/Units 21:50 Urine Color Yellow (Yellow) Urine Clarity Clear (Clear) Urine pH 7.0 (5.0 - 8.0) Ur Specific [place] 1.010 (1.002-1.030) Urine Protein 15 H (Negative) mg/dl Urine Glucose (UA) Normal (Normal) mg/dl Urine Ketones Negative (Negative) mg/dl Urine Occult Blood 150 H (Negative) /ul Urine Nitrite Negative (Negative) Urine Bilirubin Negative (Negative) mg/dL Urine Urobilinogen Normal (Normal) mg/dl Ur Leukocyte Esterase 100 H (Negative) /ul Urine RBC 0 SEEN (0-5) /hpf Urine WBC 5-10 SEEN (0-5) /hpf Ur Squamous Epith Cells 10-25 SEEN (5-10) /hpf Ur Transition Epith Cell 0-5 SEEN (0-5) /hpf Urine Bacteria RARE (None Seen) /hpf Urine Mucus 0 SEEN (<or=2+) /hpf Charges/Coding Multi Select Codes Urinary/Genital Urinary/Genital CPT Codes: 75218-95 non-stress test Interp Assessment & Plan (1) GBS (group B streptococcus) UTI complicating : QUALIFIERS: Trimester: third trimester Qualified Code(s): O23.43 - Unspecified infection of urinary tract in , third trimester; B95.1 - Streptococcus, group B, as the cause of diseases classified elsewhere COMMENT: not high enough to treat. treat in labor (2) Uterine contractions: (3) Rh negative state in antepartum period: COMMENT: A-, Rhogam @ 28 wks & PRN Bleeding Baby Rh neg (4) Maternal varicella, non-immune: COMMENT: avoid chicken pox during , recommend varicella vaccination post delivery (5) Depression: QUALIFIERS: Depression Type: unspecified Qualified Code(s): F32.A - Depression, unspecified COMMENT: sertraline 100mg daily; minimal social support; stable. Her mom is now planning to be with her for delivery. Her grandma to keep her son. Enc again to reach out to [facility] and also [employer] [facility] (6) Supervision of high-risk : QUALIFIERS: Trimester: third trimester Qualified Code(s): O09.93 - Supervision of high risk , unspecified, third trimester COMMENT: PRR , AMARI 06/23/24, kim Rice, FOChio not involved (7) : QUALIFIERS: Weeks of gestation: 37 weeks Qualified Code(s): Z3A.37 - 37 weeks gestation of COMMENT: anatomy nl, NIPT low risk (8) History of gestational hypertension: COMMENT: 1st
== END 2024-06-08 23:50 | disposition home or self-care (01) ==
LOC: WPOUT 21:19 → WP 21:20
PROVIDERS: Referring Provider Advanced Practice Midwife; Visit Provider Advanced Practice Midwife
DX: O23.43 Unspecified infection of urinary tract in pregnancy, third trimester (principal); B95.1 Streptococcus, group B, as the cause of diseases classified elsewhere; O26.893 Other specified pregnancy related conditions, third trimester; Z67.91 Unspecified blood type, Rh negative; O99.343 Other mental disorders complicating pregnancy, third trimester; F32.A Depression, unspecified; O09.93 Supervision of high risk pregnancy, unspecified, third trimester; Z3A.37 37 weeks gestation of pregnancy; Z87.59 Personal history of other complications of pregnancy, childbirth and the puerperium; Z79.899 Other long term (current) drug therapy
CPT/HCPCS: 59025; 59050; 81001; 87077; 87086; 87088; 99221; G0378

== ENCOUNTER 2024-06-17 00:58 | Inpatient (IN) | payer OTHER, MEDICAID, SELFPAY ==
[2024-06-17] VITALS (19 sets, daily range): BP systolic 99–140; BP diastolic 50–93; PULSE 54–70; RESP 14–20; TEMP 36.2–36.8; O2SAT 98–100; BMI 28.0
[2024-06-17] MEDS: Lactated Ringers 1,000 ML 999 ML IV (01:10)
[2024-06-17] MEDS: Sodium Citrate/Citric Acid 30 ML UDC PO (01:23)
[2024-06-17] MEDS: Acetaminophen 500 MG Tablet PO (01:24)
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
[2024-06-17 01:26] LABS: Absolute Lymphocyte Count 3.09 X10^3/uL (0.83-4.51); Absolute Neutrophil Count 4.3 X10^3/uL (2.0-7.7); Basophil# 0.04 X10^3/uL; Basophil% 0.5 % (0-1); Eosinophil# 0.08 X10^3/uL; Hematocrit 37.7 % (37-47); Hemoglobin 13.5 g/dL (12.0-15.0); Lymphocyte # 3.09 X10^3/ul (0.83-4.51); Lymphocyte % 37.7 % (19-41); Mean Corp Hgb Conc 35.8 g/dL (32-36); Mean Corpuscular Hgb 32.2 pg (27.0-32.0); Mean Platelet Vol. 10.7 fl (6.2-12.0); Monocyte# 0.69 X10^3/uL; Monocyte% 8.4 % (0-10); NRBC Flagged by Analyzer 0 % (0-5); Neutrophil # 4.26 X10^3/uL (2.7-7.7); Neutrophil % 51.9 % (47-70); Platelet Count 204 K/mm3 (150-450); RBC Distribution Width CV 12.5 % (11.6-14.6); RBC Distribution Width SD 40.5 fl (35.1-43.9); Red Blood Count 4.19 M/mm3 (4.2-5.4); White Blood Count 8.2 K/mm3 (4.4-11.0)
--- NOTE | 2024-06-17 01:28 | DCINST_ITS ---
Discharge Instructions Diet Discharge Diet: No restrictions DC O2, CPAP, BIPAP needs Home O2 Discharge instructions: No Dressing / Incision Discharge Activity: May Not Drive (for 2 weeks or while taking narcotic pain medications.), May Shower and May Take a Tub Bath (in 7 days.) May resume sexual activity in: 4-6 weeks Weight Bearing Status: Full weight bearing Lifting Restrictions: 20 pounds Dressing / Incision Call your doctor if your incision/area has: Continuous Slow Oozing, Sudden Increased Bleeding, Increased Pain/ Swelling, Increased Redness and Foul Smelling Discharge Call your doctor if you observe: Fever of 101 or Higher and Using more than 1 pad per hour Suture Line Care: Avoid Pulling/Pushing and Avoid Pinching/Bending Cleanse incision/area with: Soap & Water and Keep Dressing Clean & Dry Follow Up Care Please Follow Up With: Krissy Zafar DO When: Call [phone] to make an appointment for an incision check in 1-2 weeks. Test Results: Test results from this visit will be discussed in further detail at your follow- up appointment, if applicable. Discharge Plan Admission Admit Date/Time: 06/17/24 00:58 Primary Reason for Your Visit: section for breech presentation Attending Provider: Krissy Zafar Primary Care Provider: Care PhysicianLucia Primary Discharge Orders/Prescriptions Prescriptions: New ibuprofen 800 mg tablet 800 mg PO Q8H PRN (Reason: pain) Qty: 30 0RF oxycodone-acetaminophen [Percocet] 5-325 mg tablet 1 tab PO Q4H PRN (Reason: pain) 7 Days Qty: 20 0RF Continued PNV-DHA 27 mg iron-1 mg -300 mg capsule 1 cap PO DAILY No Action sertraline 50 mg tablet 100 mg PO DAILY ferrous sulfate [Feosol] 325 mg (65 mg iron) tablet 325 mg PO DAILY Referrals / Follow Up: Care PhysicianLucia Primary [Primary Care Provider] - Disposition Disposition (needs filled in before D/C Order can be placed): Home, Self Care
[2024-06-17] MEDS: Cefazolin 2 GM in Syringe IV (01:39)
[2024-06-17] MEDS: Oxytocin 15 Units/NS 250ml 15 UNITS/250 ML IV.SOLN 334 UNITS IV (02:02)
[2024-06-17 02:05] LABS: Syphilis Antibodies Nonreactive (Nonreactive)
[2024-06-17] MEDS: Ondansetron 4 MG/2 ML Vial IV (02:20)
--- NOTE | 2024-06-17 02:27 | EX.PCM.OBRPT ---
Assessment & Plan (1) Breech presentation: COMMENT: scan if in labor or prior to P C/S (2) Uterine contractions: (3) GBS (group B streptococcus) UTI complicating : QUALIFIERS: Trimester: third trimester Qualified Code(s): O23.43 - Unspecified infection of urinary tract in , third trimester; B95.1 - Streptococcus, group B, as the cause of diseases classified elsewhere COMMENT: not high enough to treat. treat in labor (4) Rh negative state in antepartum period: COMMENT: A-, Rhogam @ 28 wks & PRN Bleeding Baby Rh neg (5) Maternal varicella, non-immune: COMMENT: avoid chicken pox during , recommend varicella vaccination post delivery (6) Supervision of high-risk : QUALIFIERS: Trimester: third trimester Qualified Code(s): O09.93 - Supervision of high risk , unspecified, third trimester COMMENT: PRR , AMARI 06/23/24, kim Rice, FOB not involved (7) : QUALIFIERS: Weeks of gestation: 38 weeks Qualified Code(s): Z3A.38 - 38 weeks gestation of COMMENT: anatomy nl, NIPT low risk (8) History of gestational hypertension: COMMENT: 1st (9) Depression: QUALIFIERS: Depression Type: unspecified Qualified Code(s): F32.A - Depression, unspecified COMMENT: sertraline 100mg daily; minimal social support; stable. Her mom is now planning to be with her for delivery. Her grandma to keep her son. Enc again to reach out to [facility] and also Help Me Grow Maternal Data Information AMARI Calculator Estimated Delivery Date Method Current WG Current Estimate 06/23/24 LMP (Certain) 39w 1d Other Estimates 06/24/24 Ultrasound #1 39w 0d Final AMARI: 06/23/24 Gestational age: 39 weeks 1 day Doctor Who Attended Delivery: Kobe Zarco Operative Report (OB) Details Procedure Type: low transverse Date of Procedure: 06/17/24 Procedure Start Time: 01:58 Procedure Stop Time: 02:28 Time of Delivery: 02:01 Pre-Operative Diagnosis: Malpresentation Post-Operative Diagnosis: Same as Pre-operative diagnosis and Other Post-Operative Diag OTHER Post-Operative Diagnosis: none Classification: BATSHEVA Type of Anesthesia: Spinal Antibiotic Given: Ancef 2 grams IV x1 Drain: Vincent to straight drain Estimated Blood Loss: 800cc Findings Description of surgery: The patient is a 23 y/o @ 39 weeks 1 day who presented to L&D for contractions and was found to be 5 cm dilated and breech presentation. The decision was made to proceed with an urgent . Spinal anesthesia was placed without difficulty. Vincent catheter was placed. The patient was placed in the dorsal supine position with leftward tilt. Patient was prepped and draped in the normal sterile fashion. Pfannenstiel skin incision was made with the scalpel and carried through to the underlying layer of fascia with the scalpel. Fascia was nicked in the midline and the incision extended laterally. The rectus bellies were dissected off superiorly and inferiorly with out complication both sharply and bluntly. The peritoneum was entered digitally. The incision was stretched and a low transverse uterine incision was made with the scalpel. The infant's feet were first delivered followed by the buttocks, torso and right arm and shoulder. The was turned and the left arm was swept down and out. A nucal cord was noted and reduced over the body. Th head was delivered atraumatically. The cord was clamped and cut and the infant was handed off to awaiting nurse. The placenta was delivered spontaneously immediately following and was noted to be intact and have a three-vessel cord. The uterus was exteriorized cleared of all clots and debris, and the incision was closed in a double layer closure using #1 Vicryl and #1 Monocryl. The ovaries and fallopian tubes were noted to be within normal limits. The uterus was returned to the maternal abdomen and gutters were cleared of all clots and debris. The peritoneum was closed with 3-0 Monocryl in a running fashion. Fascia was closed with 0 PDS in a running fashion. Subcutaneous tissue was copiously irrigated and the skin was closed with 3-0 Monocryl in a subcuticular fashion. Mepilex dressing was applied without complication. Patient was taken to recovery in stable condition. It was discussed with the patient that based on the clinical information obtained during this encounter, combined with her history, at this time I would recommend or repeat for future deliveries if further pregnancies are desired. Surgical findings: viable male apgars were 3,7,9 Archer Presentation: Footling Breech Amniotic Membrane Rupture Type: Artificial Amniotic Fluid Description: Clear Placental Delivery Description: Spontaneous Placenta Disposition: [facility] Specimen collected: No Cord Vessel Description: 3 Vessels Cord Entanglement: Around neck x 1, loose Nuchal Cord Compression: Without compression Cord Gases: ABG and VBG Infant A gender: Male (1 minute): 3 (5 minute): 7 Delayed Cord Clamping: Yes Eyeletter extrusion die repairer: Yes Animal Control Supervisor: Zaynab Car Tasks completed by surgical first assistant: Closing, Hemostasis: Clamp and Retracting Additional syrup mixer assistant?: No Complications Complications: No Multi Select Codes Urinary/Genital Urinary/Genital CPT Codes: 04771 Delivery [facility]
[2024-06-17] MEDS: Oxytocin 15 Units/NS 250ml 15 UNITS/250 ML IV.SOLN 83 UNITS IV (03:01)
[2024-06-17] MEDS: Ketorolac 30 MG/ML Syringe IV ×4 (04:53→23:32)
[2024-06-17] MEDS: 0.9% Saline Lock 10 ML Syringe IV ×4 (04:53→23:32)
[2024-06-17] MEDS: Nalbuphine 10 MG/ML Ampul 5 MG IV (06:36)
--- NOTE | 2024-06-17 09:19 | NURSING ---
all late entry charting done on this pt was completed late due to unit acuity and pt care
[2024-06-17] MEDS: Acetaminophen 500 MG Tablet 1000 MG PO ×3 (09:30→22:03)
[2024-06-17] MEDS: Sertraline 100 MG Tablet PO (09:30)
[2024-06-18 01:03] VITALS: BP 114/55; PULSE 86; RESP 16; TEMP 36.6; O2SAT 100
[2024-06-18 04:05] VITALS: BP 113/55; PULSE 60; RESP 16; TEMP 36.4; O2SAT 98
[2024-06-18] MEDS: Acetaminophen 500 MG Tablet 1000 MG PO ×3 (04:10→19:53)
[2024-06-18 04:54] LABS: Hematocrit 30.8 % (37-47); Mean Corp Hgb Conc 35.7 g/dL (32-36); Mean Corpuscular Hgb 32.4 pg (27.0-32.0); Mean Corpuscular Volume 90.6 fL (81-99); Platelet Count 153 K/mm3 (150-450); RBC Distribution Width CV 12.6 % (11.6-14.6); RBC Distribution Width SD 40.9 fl (35.1-43.9); White Blood Count 8.8 K/mm3 (4.4-11.0)
[2024-06-18] MEDS: Ibuprofen 600 MG Tablet PO ×3 (08:02→19:53)
[2024-06-18 08:07] VITALS: BP 117/72; PULSE 62; RESP 16; TEMP 36.6; O2SAT 100
--- NOTE | 2024-06-18 08:08 | PN.OBGYN_ITS ---
Subjective Subjective Patient is laying in bed comfortably without complaints. She states that she slept on an off during the night. Lochia is mild and pain is minimal. She would like to stay another night for pain management. Objective Data Objective Data Vital Signs: Vital Signs Temp Pulse Resp BP Pulse Ox O2 Del Method 97.6 F L 60 16 113/55 L 98 Room Air 06/18/24 04:05 06/18/24 04:05 06/18/24 04:05 06/18/24 04:05 06/18/24 04:05 06/18/24 04:05 Oxygen Delivery Method Room Air Weight: 173 lb 9.6 oz Body Mass Index (BMI) 28.0 Intake & Output: Intake and Output for Last 24 Hours 06/16/24 06/17/24 06/18/24 23:59 23:59 23:59 Intake Total 2900 / 2900 Output Total 2600 / 2600 Balance 300 / 300 Lab / Micro Data 06/18/24 04:45 Labs: Laboratory Results - last 24 hr 06/18/24 04:45: WBC 8.8, RBC 3.40 L, Hgb 11.0 L, Hct 30.8 L, MCV 90.6, MCH 32.4 H, MCHC 35.7, RDW Std Deviation 40.9, RDW Coeff of Osvaldo 12.6, Plt Count 153, MPV 10.0 ROS Constitutional Constitutional: Reports systems reviewed and no addt'l complaints, except as documented Cardiovascular Cardiovascular: Denies chest pain, dizziness, dyspnea or irregular heart rhythm Respiratory/Chest Respiratory/Chest: Denies cough, pain on inspiration or shortness of breath at rest Gastrointestinal Gastrointestinal: Denies abdominal pain, nausea or vomiting Genitourinary Genitourinary: Denies burning urination Musculoskeletal Musculoskeletal: Denies muscle cramps, muscle spasms or muscle weakness Neurologic Neurologic: Denies confusion, dizziness, headache(s) or lack of coordination Psychiatric Psychiatric: Denies anxiety, behavioral changes or depression Physical Exam HEENT normocephalic Resp normal respiratory effort and normal air movement GI soft to palpation, non-tender and non-distended Rectal Exam: other Other Details: Incision is clean, dry, and intact no CVA tenderness Extremity normal to inspection General Extremity: edema bilateral (trace ) Assessment & Plan (1) Status post section: (2) Breech presentation: COMMENT: scan if in labor or prior to P C/S (3) Uterine contractions: (4) GBS (group B streptococcus) UTI complicating : QUALIFIERS: Trimester: third trimester Qualified Code(s): O23.43 - Unspecified infection of urinary tract in , third trimester; B95.1 - Streptococcus, group B, as the cause of diseases classified elsewhere COMMENT: not high enough to treat. treat in labor (5) Rh negative state in antepartum period: COMMENT: A-, Rhogam @ 28 wks & PRN Bleeding Baby Rh neg (6) Maternal varicella, non-immune: COMMENT: avoid chicken pox during , recommend varicella vaccination post delivery (7) Supervision of high-risk : QUALIFIERS: Trimester: third trimester Qualified Code(s): O09.93 - Supervision of high risk , unspecified, third trimester COMMENT: PRR , AMARI 06/23/24, kim Rice, FOB not involved (8) : QUALIFIERS: Weeks of gestation: 38 weeks Qualified Code(s): Z 3A.38 - 38 weeks gestation of COMMENT: anatomy nl, NIPT low risk (9) History of gestational hypertension: COMMENT: 1st (10) Depression: QUALIFIERS: Depression Type: unspecified Qualified Code(s): F32.A - Depression, unspecified COMMENT: sertraline 100mg daily; minimal social support; stable. Her mom is now planning to be with her for delivery. Her grandma to keep her son. Enc again to reach out to [facility] and also Help Me Grow PLAN: Plan s/p LTCS PPD # 1 1. routine post care 2. breast feeding (pumping) + bottle supplementation- support given 3. rh neg- work up ordered 4. rubella immune 5. continue pain management today and aim for dc tomorrow.
[2024-06-18] MEDS: Sertraline 100 MG Tablet PO (13:52)
[2024-06-18] MEDS: Senna/Docusate Sodium 1 Tablet PO (13:53)
[2024-06-18 14:08] VITALS: BP 120/78; PULSE 66; RESP 18; TEMP 36.3
[2024-06-18 19:56] VITALS: BP 133/77; PULSE 72; RESP 16; TEMP 36.6; O2SAT 99
[2024-06-19 01:44] VITALS: BP 127/76; PULSE 72; RESP 16; TEMP 36.6; O2SAT 98
[2024-06-19] MEDS: Acetaminophen 500 MG Tablet 1000 MG PO ×2 (02:27→08:22)
[2024-06-19] MEDS: Ibuprofen 600 MG Tablet PO ×2 (02:27→08:22)
[2024-06-19] MEDS: SimETHICONE 80 MG Chewable Tablet PO (02:27)
--- NOTE | 2024-06-19 07:12 | PN.OBGYN_ITS ---
Subjective Subjective Patient doing well without complaints. Tolerating PO. Ambulating and voiding without difficulty. Feeding well. Denies chest pain, shortness of breath, calf pain/swelling, fevers, chills, lightheadedness. Objective Data Objective Data Vital Signs: Vital Signs Temp Pulse Resp BP Pulse Ox O2 Del Method 97.9 F 72 16 127/76 H 98 Room Air 06/19/24 01:44 06/19/24 01:44 06/19/24 01:44 06/19/24 01:44 06/19/24 01:44 06/19/24 01:44 Oxygen Delivery Method Room Air Weight: 173 lb 9.6 oz Body Mass Index (BMI) 28.0 Intake & Output: Intake and Output for Last 24 Hours 06/17/24 06/18/24 06/19/24 23:59 23:59 23:59 Intake Total 2900 / 2900 Output Total 2600 / 2600 Balance 300 / 300 Lab / Micro Data Attestation: I reviewed the patient's lab results. 06/18/24 04:45 ROS Constitutional Constitutional: Reports systems reviewed and no addt'l complaints, except as documented; Denies anorexia or headache(s) Cardiovascular Cardiovascular: Reports systems reviewed and no addt'l complaints, except as documented; Denies dizziness, dyspnea, nausea or tachypnea Respiratory/Chest Respiratory/Chest: Reports systems reviewed and no addt'l complaints, except as documented; Denies cough, dyspnea, shortness of breath at rest or tachypnea Gastrointestinal Gastrointestinal: Reports systems reviewed and no addt'l complaints, except as documented; Denies abdominal pain, constipation or nausea Genitourinary Genitourinary: Reports systems reviewed and no addt'l complaints, except as documented; Denies burning urination, difficulty urinating, dysuria, urinary frequency or urinary incontinence Musculoskeletal Musculoskeletal: Reports systems reviewed and no addt'l complaints, except as documented Integumentary Integumentary: Reports systems reviewed and no addt'l complaints, except as documented Neurologic Neurologic: Reports systems reviewed and no addt'l complaints, except as documented; Denies abnormal speech, dizziness or headache(s) Psychiatric Psychiatric: Reports systems reviewed and no addt'l complaints, except as documented Endocrine Endocrinology: Reports systems reviewed and no addt'l complaints, except as documented Hematologic/Lymphatic Hematologic/Lymphatic: Reports systems reviewed and no addt'l complaints, except as documented Physical Exam Const alert, oriented x3 and no apparent distress Neck full ROM Resp normal respiratory effort, normal air movement and no retractions Effort and Inspection: able to speak in complete sentences and symmetric chest movement GI soft to palpation Inspection: incision intact Bladder / Kidney Exam: bladder normal to palpation Uterus Palpation: uterus fundus firm Extremity normal to inspection and full ROM Psych mental status grossly normal, thought process normal and cooperative Assessment & Plan (1) Status post section: PLAN: s/p LTCS PPD # 2 1. routine post care 2. breast feeding- support given 3. rh positive 4. rubella immune 5. Discharge home (2) Breech presentation: COMMENT: scan if in labor or prior to P C/S (3) Uterine contractions: (4) GBS (group B streptococcus) UTI complicating : QUALIFIERS: Trimester: third trimester Qualified Code(s): O23.43 - Unspecified infection of urinary tract in , third trimester; B95.1 - Streptococcus, group B, as the cause of diseases classified elsewhere COMMENT: not high enough to treat. treat in labor (5) Rh negative state in antepartum period: COMMENT: A-, Rhogam @ 28 wks & PRN Bleeding Baby Rh neg (6) Maternal varicella, non-immune: COMMENT: avoid chicken pox during , recommend varicella vaccination post delivery (7) Supervision of high-risk : QUALIFIERS: Trimester: third trimester Qualified Code(s): O09.93 - Supervision of high risk , unspecified, third trimester COMMENT: PRR , AMARI 06/23/24, kim Rice, FOB not involved (8) : QUALIFIERS: Weeks of gestation: 38 weeks Qualified Code(s): Z 3A.38 - 38 weeks gestation of COMMENT: anatomy nl, NIPT low risk (9) History of gestational hypertension: COMMENT: 1st (10) Depression: QUALIFIERS: Depression Type: unspecified Qualified Code(s): F32.A - Depression, unspecified COMMENT: sertraline 100mg daily; minimal social support; stable. Her mom is now planning to be with her for delivery. Her grandma to keep her son. Enc again to reach out to [facility] and also [facility] Charges/Coding Multi Select Codes Urinary/Genital Urinary/Genital CPT Codes: No Charge
--- NOTE | 2024-06-19 07:14 | DCINST_ITS ---
Discharge Instructions Diet Discharge Diet: No restrictions DC O2, CPAP, BIPAP needs Home O2 Discharge instructions: No Dressing / Incision Discharge Activity: Return to Normal Activity May resume sexual activity in: 4-6 weeks Weight Bearing Status: Full weight bearing Dressing / Incision Call your doctor if your incision/area has: Continuous Slow Oozing, Sudden Increased Bleeding, Increased Pain/ Swelling, Increased Redness and Foul Smelling Discharge Call your doctor if you observe: Fever of 101 or Higher and Using more than 1 pad per hour Suture Line Care: Avoid Pulling/Pushing and Avoid Pinching/Bending Cleanse incision/area with: Soap & Water and Keep Dressing Clean & Dry Follow Up Care Please Follow Up With: Krissy Zafar DO When: Please call the office to schedule your follow up appointment in 6 weeks. If you had high blood pressure please call to schedule an appointment in 2 weeks. Test Results: Test results from this visit will be discussed in further detail at your follow- up appointment, if applicable. Discharge Plan Admission Admit Date/Time: 06/17/24 00:58 Primary Reason for Your Visit: section for breech presentation Attending Provider: Krissy Zafar Primary Care Provider: Care PhysicianLucia Primary Discharge Orders/Prescriptions Prescriptions: New ibuprofen 800 mg tablet 800 mg PO Q8H PRN (Reason: pain) Qty: 30 0RF oxycodone-acetaminophen [Percocet] 5-325 mg tablet 1 tab PO Q4H PRN (Reason: pain) 7 Days Qty: 20 0RF Continued PNV-DHA 27 mg iron-1 mg -300 mg capsule 1 cap PO DAILY No Action sertraline 50 mg tablet 100 mg PO DAILY ferrous sulfate [Feosol] 325 mg (65 mg iron) tablet 325 mg PO DAILY Referrals / Follow Up: Care Physician,Lucia Primary [Primary Care Provider] - Disposition Disposition (needs filled in before D/C Order can be placed): Home, Self Care
--- NOTE | 2024-06-19 07:15 | PCM.DC.SUM ---
Providers Date of Admission: 06/17/24 Date of Discharge: 06/19/24 Primary Care Physician: No Primary Care Phys Reason For Visit: PRIMARY C SECTION Diagnosis Discharge Diagnosis (1) Status post section: Status: Acute Code(s): Z98.891 - History of uterine scar from previous surgery Plan: s/p LTCS PPD # 2 1. routine post care 2. breast feeding- support given 3. rh positive 4. rubella immune 5. Discharge home (2) Breech presentation: Status: Acute Code(s): O32.1XX0 - Maternal care for breech presentation, not applicable or unspecified (3) Uterine contractions: Status: Acute Code(s): O47.9 - False labor, unspecified (4) GBS (group B streptococcus) UTI complicating : Status: Acute Code(s): O23.40 - Unspecified infection of urinary tract in , unspecified trimester; B95.1 - Streptococcus, group B, as the cause of diseases classified elsewhere Qualifiers: Trimester: third trimester Qualified Code(s): O23.43 - Unspecified infection of urinary tract in , third trimester; B95.1 - Streptococcus, group B, as the cause of diseases classified elsewhere (5) Rh negative state in antepartum period: Status: Acute Code(s): O26.899 - Other specified related conditions, unspecified trimester; Z67.91 - Unspecified blood type, Rh negative (6) Maternal varicella, non-immune: Status: Acute Code(s): O09.899 - Supervision of other high risk pregnancies, unspecified trimester; Z28.39 - Other underimmunization status (7) Supervision of high-risk : Status: Acute Code(s): O09.90 - Supervision of high risk , unspecified, unspecified trimester Qualifiers: Trimester: third trimester Qualified Code(s): O09.93 - Supervision of high risk , unspecified, third trimester (8) : Status: Acute Code(s): Z34.90 - Encounter for supervision of normal , unspecified, unspecified trimester Qualifiers: Weeks of gestation: 38 weeks Qualified Code(s): Z3A.38 - 38 weeks gestation of (9) History of gestational hypertension: Status: Acute Code(s): Z87.59 - Personal history of other complications of , childbirth and the puerperium (10) Depression: Status: Acute Code(s): F32.9 - Major depressive disorder, single episode, unspecified Qualifiers: Depression Type: unspecified Qualified Code(s): F32.A - Depression, unspecified Medications at Discharge Home Medications multivitamin no.47-iron fum 27 mg-folate no.1 1 mg-dha 300 mg capsule (PNV-DHA) 1 cap PO DAILY 11/22/23 sertraline 50 mg tablet 100 mg PO DAILY Check with primary doctor 11/22/23 ferrous sulfate 325 mg (65 mg iron) tablet (Feosol) 325 mg PO DAILY 06/08/24 ibuprofen 800 mg tablet 800 mg PO Q8H PRN pain #30 tabs 06/17/24 oxycodone-acetaminophen 5 mg-325 mg tablet (Percocet) 1 tab PO Q4H PRN pain 7 days #20 tabs 06/17/24 Hospital Course Operations section Procedures None Summary of Care Provided Minutes Spent on Discharge: 30 Physical Exam Const alert, oriented x3 and no apparent distress Neck full ROM Resp normal respiratory effort, normal air movement and no retractions Effort and Inspection: able to speak in complete sentences and symmetric chest movement GI soft to palpation Inspection: incision intact Bladder / Kidney Exam: bladder normal to palpation Uterus Palpation: uterus fundus Extremity normal to inspection and full ROM Psych mental status grossly normal, thought process normal and cooperative Weight / BMI Weight Weight: 173 lb 9.6 oz Body Mass Index (BMI) 28.0 ABG / Lab / Microbiology Data 06/18/24 04:45 D/C Instructions Discharge Diet: No restrictions May shower in (days): 0 May resume sexual activity in: 4-6 weeks Weight Bearing Status: Full weight bearing Call your doctor if your incision/area has: Continuous Slow Oozing, Sudden Increased Bleeding, Increased Pain/ Swelling, Increased Redness and Foul Smelling Discharge Call your doctor if you observe: Fever of 101 or Higher and Using more than 1 pad per hour Suture Line Care: Avoid Pulling/Pushing and Avoid Pinching/Bending Cleanse incision/area with: Soap & Water and Keep Dressing Clean & Dry DC O2, CPAP, BIPAP Needs Home O2 Discharge instructions: No Please Follow Up With: Krissy Zafar DO When: Please call the office to schedule your follow up appointment in 6 weeks. If you had high blood pressure please call to schedule an appointment in 2 weeks. Meaningful Use Info Meaningful Use Meaningful Use Diagnoses (Choose all that apply): None applicable Ischemic Stroke Statin Dosing Therapy Reference: STATIN DOSE THERAPY REFERENCE: * Patients > 75 years receive moderate or high dose statin therapy. * Patients 75 years or YOUNGER should receive HIGH intensity statin dose unless contraindicated. You will be required to document reason for non-treatment if statin daily dose does not meet guidelines. HIGH DOSE STATIN THERAPY DAILY Atorvastatin > than or = to 40 mg Rosuvastatin > than or = to 20 mg Amlodipine + Atorvastatin > than or = to 2.5/40 mg Ezetimibe + Simvastatin 10/80 mg Simvastatin 80mg Discharge Plan Admission Admit Date/Time: 06/17/24 00:58 Primary Reason for Your Visit: section for breech presentation Attending Provider: Krissy Zafar Primary Care Provider: Care Physician,No Primary Discharge Orders/Prescriptions Prescriptions: New ibuprofen 800 mg tablet 800 mg PO Q8H PRN (Reason: pain) Qty: 30 0RF oxycodone-acetaminophen [Percocet] 5-325 mg tablet 1 tab PO Q4H PRN (Reason: pain) 7 Days Qty: 20 0RF Continued PNV-DHA 27 mg iron-1 mg -300 mg capsule 1 cap PO DAILY No Action sertraline 50 mg tablet 100 mg PO DAILY ferrous sulfate [Feosol] 325 mg (65 mg iron) tablet 325 mg PO DAILY Referrals / Follow Up: Care Physician,No Primary [Primary Care Provider] - Disposition Disposition (needs filled in before D/C Order can be placed): Home, Self Care
[2024-06-19 08:00] VITALS: BP 130/87; PULSE 63; RESP 18; TEMP 36.6
[2024-06-19] MEDS: Sertraline 100 MG Tablet PO (08:21)
[2024-06-19] MEDS: Senna/Docusate Sodium 1 Tablet PO (08:21)
== END 2024-06-19 12:35 | disposition home or self-care (01) | DRG 787 ==
LOC: WPOUT 01:08 → WP 01:08
PROVIDERS: Registered Nurse; Admitting Provider Obstetrics & Gynecology; Visit Provider Obstetrics & Gynecology
DX: O32.8XX0 Maternal care for other malpresentation of fetus, not applicable or unspecified (principal); O98.82 Other maternal infectious and parasitic diseases complicating childbirth; F32.A Depression, unspecified; F41.9 Anxiety disorder, unspecified; O99.344 Other mental disorders complicating childbirth; O26.893 Other specified pregnancy related conditions, third trimester; Z67.91 Unspecified blood type, Rh negative; O69.81X0 Labor and delivery complicated by cord around neck, without compression, not applicable or unspecified; B95.1 Streptococcus, group B, as the cause of diseases classified elsewhere; Z37.0 Single live birth; Z3A.39 39 weeks gestation of pregnancy; Z87.59 Personal history of other complications of pregnancy, childbirth and the puerperium; Z79.899 Other long term (current) drug therapy
CPT/HCPCS: 59025; 59050; 76815; 85025; 85027; 86780; 86850; 86900; 86901; 99221; A4216; G0378; J2405

== ENCOUNTER → 2024-10-02 | Outpatient (CLI) | payer OTHER, MEDICAID, SELFPAY ==
[2024-10-05 06:08] LABS: Chlamydia By Nucleic Acid AMP Negative (Negative); Gonococcus By Nucleic Acid AMP Negative (Negative)
== END | disposition home or self-care (01) ==
LOC: LABSPEC 16:17
PROVIDERS: Visit Provider Nurse Practitioner Women's Health
DX: Z20.2 Contact with and (suspected) exposure to infections with a predominantly sexual mode of transmission (principal); Z11.3 Encounter for screening for infections with a predominantly sexual mode of transmission
CPT/HCPCS: 87491; 87591

== ENCOUNTER → 2025-02-11 | Outpatient (CLI) | payer MEDICAID, SELFPAY ==
--- NOTE | 2025-02-11 18:25 | US_ITS ---
PROCEDURE: US TRANSVAGINAL NON- 02/11/2025 REASON FOR EXAM: BLEEDING W IUD TECHNIQUE: Procedure Code: USTVAG Modality: US Procedure: TRANSVAGINAL NON- COMPARISON: None. FINDINGS: Anteverted uterus appears normal in size and smooth in contour, measuring 9.5 x 6.4 x 4.1 cm. No discrete uterine myoma is seen. IUD in place within the upper uterine segment. No abnormal fluid collection is seen within the uterine cavity. Endometrial stripe complex appears within normal limits measuring up to 0.4 cm in thickness. Right ovary is sonographically normal measuring 2.7 x 2 x 1.7 cm. Left ovary measures 3.6 x 2.8 x 2.4 cm, and contains a simple appearing cyst/dominant follicle measuring up to 2.3 cm. No specific follow-up is indicated. Blood flow is preserved bilaterally on color Doppler. No adnexal mass or significant free pelvic fluid is seen. Diffuse prominent ectatic periuterine vasculature, which is nonspecific and may be clinically insignificant, but can be seen with pelvic congestion syndrome. US/Transvaginal Non- IMPRESSION: 1. Sonographically unremarkable uterus. IUD in place. 2. Simple 2.3 cm left ovarian cyst/dominant follicle. No follow-up indicated. 3. Prominent ectatic periuterine vessels; nonspecific and may be clinically ins ignificant but can be seen with pelvic congestion syndrome in the appropriate setting. Reading Location: [id number]
== END | disposition home or self-care (01) ==
LOC: US 04-02 12:10
PROVIDERS: Referring Provider Student in an Organized Health Care Education/Training Program; Visit Provider Student in an Organized Health Care Education/Training Program
DX: N93.9 Abnormal uterine and vaginal bleeding, unspecified (principal); Z97.5 Presence of (intrauterine) contraceptive device
CPT/HCPCS: 76830